=== PATIENT | female | born 1955 | race Caucasian/White ===

== ENCOUNTER 2018-09-15 10:01 | Emergency (ER) | payer BC, OTHER ==
[~2018-09-15] VITALS: Ht 157.5 cm; Wt 90.7 kg
[~2018-09-15 10:01] MED LIST: FLUT250M9 IN; TIOTCAP IN
[2018-09-15 11:03] VITALS: BP 115/73
[2018-09-15] MEDS ORDERED: KETOROLAC TROMETH 60MG/2ML VIAL IM ONE (11:45)
[2018-09-15] MEDS ORDERED: METHOCARBAMOL 500 MG TAB PO ONE (11:45)
[2018-09-15] MEDS ORDERED: KETOROLAC TROMETH 15 mg/ml 1ML VL IV ONE (12:00)
== END 2018-09-15 12:29 | disposition home or self-care (01) ==
LOC: EDBD 10:01 → ER 10:04
DX: S13.4XXA Sprain of ligaments of cervical spine, initial encounter (principal); M25.519 Pain in unspecified shoulder; J44.9 Chronic obstructive pulmonary disease, unspecified; E78.5 Hyperlipidemia, unspecified; I10 Essential (primary) hypertension; F17.210 Nicotine dependence, cigarettes, uncomplicated; V43.92XA Unspecified car occupant injured in collision with other type car in traffic accident, initial encounter; Y93.89 Activity, other specified; Y92.488 Other paved roadways as the place of occurrence of the external cause; Y99.8 Other external cause status
CPT/HCPCS: 71045; 72125; 96374; 99284; J1885

== ENCOUNTER 2022-07-07 19:10 | Inpatient (IN) | payer OTHER ==
[~2022-07-07] VITALS: Ht 157.5 cm; Wt 60.1 kg
[2022-07-07] MEDS ORDERED: SODIUM CHLORIDE 0.9% 1,000 ML IV ONE (19:30)
[2022-07-07] MEDS ORDERED: PANTOPRAZOLE 40 MG/10 ML VIAL INJ IV ONE (19:30)
[2022-07-07] MEDS ORDERED: ONDANSETRON HCL 4 MG/2 ML VIAL IV ONE (19:30)
[2022-07-07 20:10] LABS: Basophils # (auto) 0.2 10 ^3/uL (0-0.2); Basophils % (auto) 1.5 % (0.0-2.0); Eosinophils # (auto) 0 10 ^3/uL (0-0.8); Hematocrit 40.4 % (36.0-46.0); Hemoglobin 13.3 g/dL (12.2-16.2); Lymphocytes # (auto) 1.1 10 ^3/uL (0.4-5.4); Lymphocytes % (auto) 9.9 % (10.0-50.0); Mean Corpuscular Hemoglobin 29.6 pg (28.0-32.0); Mean Corpuscular Hgb Conc. 32.9 g/dL (32.0-36.0); Monocytes # (auto) 0.5 10 ^3/uL (0-1.3); Monocytes % (auto) 4.2 % (0.0-12.0); Neutrophils # (auto) 9.5 10 ^3/uL (1.6-8.6); Neutrophils % (auto) 84.4 % (37.0-80.0); Red Blood Cells 4.49 10^6/uL (4.0-5.20); Red Cell Distribution Width 14.2 % (11.8-14.3); White Blood Cell 11.2 10^3/uL (4.4-10.8)
[2022-07-07 20:18] LABS: Albumin 3.6 g/dL (3.4-5.0); BUN/Creatinine Ratio 21.1 (10.0-20.0); Calcium 9.1 mg/dL (8.5-10.1); Potassium 3.7 mmol/L (3.5-5.1)
[2022-07-07 20:21] LABS: Bilirubin, Total 0.1 mg/dL (0.2-1.0); Total Protein 7.4 g/dL (6.4-8.2)
[2022-07-07] MEDS ORDERED: PANTOPRAZOLE 40mg/50ML NS AE 50 ML IV ONE (20:30)
[2022-07-07] MEDS ORDERED: IOHEXOL 350 MG/ML 100ML IJ ONE (20:45)
[2022-07-07] MEDS: PANTOPRAZOLE 40mg/50ML NS AE 50 ML IV SCH (21:45)
[2022-07-07] MEDS ORDERED: MORPHINE SULFATE INJ 2 MG/ml SYRG IV PRN (21:45)
[2022-07-07] MEDS: SODIUM CHLORIDE 0.9% 1,000 ML IV SCH (21:45)
[2022-07-07] MEDS ORDERED: ONDANSETRON HCL 4 MG/2 ML VIAL IV PRN (21:45)
[2022-07-07 21:53] LABS: INR 0.93 (0.9-1.15)
[2022-07-07 23:28] LABS: Urine Bacteria NONE SEEN /hpf (None Seen); Urine Blood Negative /uL (Negative); Urine WBC 1 /hpf (0 - 5)
[2022-07-08 00:50] LABS: Basophils # (auto) 0 10 ^3/uL (0-0.2); Basophils % (auto) 0.4 % (0.0-2.0); Eosinophils # (auto) 0 10 ^3/uL (0-0.8); Eosinophils % (auto) 0.3 % (0.0-7.0); Hematocrit 39.3 % (36.0-46.0); Hemoglobin 12.5 g/dL (12.2-16.2); Lymphocytes # (auto) 1.4 10 ^3/uL (0.4-5.4); Lymphocytes % (auto) 11.9 % (10.0-50.0); Mean Corpuscular Hemoglobin 29.5 pg (28.0-32.0); Mean Corpuscular Volume 92.4 fL (80.0-100.0); Monocytes # (auto) 0.7 10 ^3/uL (0-1.3); Monocytes % (auto) 6.2 % (0.0-12.0); Neutrophils # (auto) 9.2 10 ^3/uL (1.6-8.6); Neutrophils % (auto) 81.2 % (37.0-80.0); Red Blood Cells 4.25 10^6/uL (4.0-5.20); Red Cell Distribution Width 14.8 % (11.8-14.3); White Blood Cell 11.4 10^3/uL (4.4-10.8)
[2022-07-08] MEDS: PANTOPRAZOLE 40mg/50ML NS AE 50 ML IV SCH ×4 (02:51→20:47)
[2022-07-08] MEDS ORDERED: LORazepam 2MG/ML-1ML VIAL IV ONE (06:00)
[2022-07-08 06:01] LABS: Basophils # (auto) 0 10 ^3/uL (0-0.2); Basophils % (auto) 0.3 % (0.0-2.0); Eosinophils # (auto) 0.1 10 ^3/uL (0-0.8); Eosinophils % (auto) 1.2 % (0.0-7.0); Hematocrit 36.2 % (36.0-46.0); Hemoglobin 11.5 g/dL (12.2-16.2); Lymphocytes # (auto) 1.6 10 ^3/uL (0.4-5.4); Lymphocytes % (auto) 14.8 % (10.0-50.0); Mean Corpuscular Hemoglobin 29.7 pg (28.0-32.0); Mean Corpuscular Hgb Conc. 31.8 g/dL (32.0-36.0); Mean Corpuscular Volume 93.4 fL (80.0-100.0); Monocytes # (auto) 0.8 10 ^3/uL (0-1.3); Monocytes % (auto) 7.3 % (0.0-12.0); Neutrophils # (auto) 8.4 10 ^3/uL (1.6-8.6); Neutrophils % (auto) 76.4 % (37.0-80.0); Nucleated Red Blood Cells % 0.1 %; Red Blood Cells 3.88 10^6/uL (4.0-5.20); Red Cell Distribution Width 14.3 % (11.8-14.3)
[2022-07-08 06:25] LABS: BUN/Creatinine Ratio 37.5 (10.0-20.0); Calcium 8.6 mg/dL (8.5-10.1); Potassium 3.8 mmol/L (3.5-5.1)
[2022-07-08] MEDS ORDERED: fentaNYL CITRATE 100 MCG/2 ML VL ONE (08:57)
[2022-07-08] MEDS ORDERED: MIDAZOLAM HCL 2MG/2ML 2ml VIAL (1mg/ml) ONE (08:58)
[2022-07-08] MEDS ORDERED: PROPOFOL 10 MG/ML 20 ML IV ONE (09:18)
[2022-07-08] MEDS ORDERED: LIDOCAINE 2% (LOCAL ANESTH.) PF 5ml SDV ONE (09:18)
[2022-07-08] MEDS ORDERED: ONDANSETRON HCL 4 MG/2 ML VIAL IV ONE (09:30)
[2022-07-08] MEDS: LISINOPRIL 20 MG TAB PO SCH ×3 (13:50→15:24)
[2022-07-08] MEDS ORDERED: LISINOPRIL 20 MG TAB PO ONE (13:50)
[2022-07-08 15:24] VITALS: BP 167/76
[2022-07-08] MEDS ORDERED: SIMV-13 PO (15:53)
[2022-07-08] MEDS ORDERED: LORA1TAB23 PO (15:53)
[2022-07-08] MEDS ORDERED: BUSP7.5T8 PO (15:53)
[2022-07-08] MEDS ORDERED: ESCI-28 PO (15:53)
[2022-07-08] MEDS ORDERED: LISI40TA11 PO (15:53)
[2022-07-08] MEDS: hydrALAZINE HCL 20 MG/ML VL IV PRN (15:55)
[2022-07-08 17:00] VITALS: BP 170/78
[2022-07-08 17:00] LABS: Basophils # (auto) 0.2 10 ^3/uL (0-0.2); Basophils % (auto) 1.3 % (0.0-2.0); Eosinophils # (auto) 0.1 10 ^3/uL (0-0.8); Eosinophils % (auto) 0.7 % (0.0-7.0); Hematocrit 37.9 % (36.0-46.0); Hemoglobin 11.9 g/dL (12.2-16.2); Lymphocytes # (auto) 1.6 10 ^3/uL (0.4-5.4); Lymphocytes % (auto) 11.1 % (10.0-50.0); Mean Corpuscular Hemoglobin 29.1 pg (28.0-32.0); Mean Corpuscular Hgb Conc. 31.3 g/dL (32.0-36.0); Mean Corpuscular Volume 92.9 fL (80.0-100.0); Monocytes # (auto) 0.8 10 ^3/uL (0-1.3); Monocytes % (auto) 5.4 % (0.0-12.0); Neutrophils # (auto) 11.4 10 ^3/uL (1.6-8.6); Neutrophils % (auto) 81.5 % (37.0-80.0); Nucleated Red Blood Cells % 0.1 %; Red Blood Cells 4.08 10^6/uL (4.0-5.20); Red Cell Distribution Width 14.4 % (11.8-14.3)
[2022-07-08] MEDS: ACETAMINOPHEN 325 MG TAB PO PRN ×2 (17:00→21:22)
[2022-07-08] MEDS: SUCRALFATE 1 GM/10 ML ORAL SUSP PO SCH ×2 (17:00→21:07)
[2022-07-08] MEDS ORDERED: POLYETHYLENE GLYCOL 17 GM PWDR PO PRN (17:15)
[2022-07-08] MEDS: SODIUM CHLORIDE 0.9% 1,000 ML IV SCH ×2 (17:45→18:39)
[2022-07-08] MEDS: DOCUSATE SOD 100 MG CAP PO SCH (21:07)
[2022-07-08 22:00] VITALS: BP 114/74
[2022-07-08] MEDS ORDERED: MELATONIN 5 MG TAB PO PRN (22:00)
[2022-07-09] MEDS: PANTOPRAZOLE 40mg/50ML NS AE 50 ML IV SCH (02:03)
[2022-07-09] MEDS: SODIUM CHLORIDE 0.9% 1,000 ML IV SCH (02:03)
[2022-07-09 05:32] VITALS: BP 133/75
[2022-07-09] MEDS: SUCRALFATE 1 GM/10 ML ORAL SUSP PO SCH ×2 (06:12→10:59)
[2022-07-09 06:15] LABS: Basophils # (auto) 0.2 10 ^3/uL (0-0.2); Basophils % (auto) 1.5 % (0.0-2.0); Eosinophils # (auto) 0.4 10 ^3/uL (0-0.8); Eosinophils % (auto) 3.6 % (0.0-7.0); Lymphocytes # (auto) 1.4 10 ^3/uL (0.4-5.4); Lymphocytes % (auto) 13.5 % (10.0-50.0); Mean Corpuscular Hemoglobin 30.8 pg (28.0-32.0); Mean Corpuscular Hgb Conc. 33.4 g/dL (32.0-36.0); Mean Corpuscular Volume 92.3 fL (80.0-100.0); Monocytes # (auto) 0.5 10 ^3/uL (0-1.3); Monocytes % (auto) 5.2 % (0.0-12.0); Neutrophils # (auto) 7.8 10 ^3/uL (1.6-8.6); Neutrophils % (auto) 76.2 % (37.0-80.0); Nucleated Red Blood Cells % 0.2 %; Red Blood Cells 3.57 10^6/uL (4.0-5.20); White Blood Cell 10.2 10^3/uL (4.4-10.8)
[2022-07-09 06:35] LABS: BUN/Creatinine Ratio 29.1 (10.0-20.0)
[2022-07-09] MEDS: ACETAMINOPHEN 325 MG TAB PO PRN (08:31)
[2022-07-09] MEDS: hydrALAZINE HCL 20 MG/ML VL IV PRN (09:13)
[2022-07-09 09:18] VITALS: BP 176/76
[2022-07-09] MEDS: DOCUSATE SOD 100 MG CAP PO SCH ×2 (10:00→10:59)
[2022-07-09] MEDS ORDERED: SUCR1SUS10 PO (13:02)
[2022-07-09] MEDS ORDERED: PANT40TA2 PO (13:02)
[2022-07-09 13:07] VITALS: BP 169/67
== END 2022-07-09 12:30 | disposition left against medical advice (07) | DRG 393 ==
LOC: EDBD 19:10 → ER 19:10 → TELE 23:23 → TELE-EAST 07-08 14:56
PROVIDERS: ADMIT Nurse Practitioner Family; ATTEND Nurse Practitioner Family
PROC: 0DB98ZX Excision of Duodenum, Via Natural or Artificial Opening Endoscopic, Diagnostic (ICD-10-PCS; 2022-07-08)
PROC: 0DB78ZX Excision of Stomach, Pylorus, Via Natural or Artificial Opening Endoscopic, Diagnostic (ICD-10-PCS; 2022-07-08)
PROC: 0DB38ZX Excision of Lower Esophagus, Via Natural or Artificial Opening Endoscopic, Diagnostic (ICD-10-PCS; principal; 2022-07-08 08:55)
DX: T18.128A Food in esophagus causing other injury, initial encounter (principal); K22.11 Ulcer of esophagus with bleeding; K25.4 Chronic or unspecified gastric ulcer with hemorrhage; K29.91 Gastroduodenitis, unspecified, with bleeding; K29.71 Gastritis, unspecified, with bleeding; K22.2 Esophageal obstruction; E78.00 Pure hypercholesterolemia, unspecified; I10 Essential (primary) hypertension; K44.9 Diaphragmatic hernia without obstruction or gangrene; J44.9 Chronic obstructive pulmonary disease, unspecified; Z53.29 Procedure and treatment not carried out because of patient's decision for other reasons; F17.210 Nicotine dependence, cigarettes, uncomplicated; Z20.822 Contact with and (suspected) exposure to COVID-19; Z90.13 Acquired absence of bilateral breasts and nipples; Z79.899 Other long term (current) drug therapy; Z80.1 Family history of malignant neoplasm of trachea, bronchus and lung; Z80.42 Family history of malignant neoplasm of prostate; Z92.3 Personal history of irradiation; Z85.3 Personal history of malignant neoplasm of breast
CPT/HCPCS: 36415; 43239; 71045; 71260; 74177; 76536; 80048; 80053; 81001; 82105; 82378; 82962; 83690; 85025; 85610; 85730; 86300; 86301; 86304; 86850; 86900; 86901; 87426; 93005; 96361; 96365; 96375; 96376; C9113; G0378; J2001; J2250; J2405; J2704

== ENCOUNTER 2024-02-29 18:33 | Inpatient (IN) | payer OTHER, MEDICAID ==
[~2024-02-29] VITALS: Ht 160 cm; Wt 63.6 kg
[~2024-02-29 18:33] MED LIST changes: +BUSP7.5T8 PO; +ESCI1TAB36 PO; +LISI40TA16 PO; +LORA-1123 PO; +PANT40TA2 PO; +SIMV40TA18 PO; +SUCR1SUS26 PO
--- NOTE | 2024-02-29 18:50 | ED.PDOC ---
History of Present Illness HPI Comments 68-year-old female brought in by EMS from home for evaluation of a possible medication overdose. Patient's daughter reportedly found the patient in her room talking to her . Patient's daughter became concerned and found that the patient had recently refilled her Ativan prescription 5 days ago. The refill was for 30 pills, and 17 pills were noted to be missing. Patient's prescription is for 1 Ativan tablet at bedtime as needed. On arrival to the ER, the patient is alert, oriented x4, and denies any SI/HI, auditory or visual hallucinations. She denies any recent illness or current pain. Chief Complaint: Overdose Time Seen by MD: 18:45 Primary Care Provider: YASIR Reviewed Notes: Nurses Notes, Cyber Defense Analyst Notes, Medications, Allergies Allergies: Coded Allergies: NO KNOWN ALLERGIES (Unverified , 09/15/18) Home Meds Active Scripts Sucralfate (CARAFATE SUSP) 1 Gm/10 Ml Ss, 1 GM PO Q6HR, #1200 ML Prov:MILLY CUMMINS MD 07/09/22 Pantoprazole Sodium Sesquihydr (Protonix) 40 Mg Tab, 40 MG PO BID, #60 TAB Prov:MILLY CUMMINS MD 07/09/22 Reported Medications Buspirone Hcl (Buspirone Hcl) 7.5 Mg Tab, 1 TAB PO BID 07/08/22 Escitalopram Oxalate (ESCITALOPRAM OXALATE) 10 Mg Tab, 1 TAB PO DAILY 07/08/22 Simvastatin (Simvastatin) 40 Mg Tab, 1 TAB PO DAILY 07/08/22 Lorazepam (Lorazepam) 1 Mg Tab, 1 TAB PO BIDPRN PRN for anxiety 07/08/22 Lisinopril (Lisinopril) 40 Mg Tab, 1 TAB PO DAILY 07/08/22 Tiotropium [place] Monohydrate (Spiriva Handihaler) Handihlr Cap, 0 IN, CAP 03/06/13 Fluticasone-Salmeterol (Advair Diskus) 250/50 Mis, 0 IN 03/06/13 Information Source: Patient, Emergency Med Personnel Mode of Arrival: EMS Severity: Moderate Timing: Minutes Duration: Since onset, Minutes Prehospital treatment: None Past Medical History PAST MEDICAL HISTORY: Cancer (Breast Cancer), COPD, High Lipids, HTN Past Medical History (Other): Currently on 3L of O2 NC at home Surgical History: (x2) Surgical History (Other): Double Mastectomy FINANCIAL AID ADVISOR History: Denies all FINANCIAL AID ADVISOR Hx Family History Family History: Reviewed,noncontributory to illness, Unknown Social History Smoker: Unknown Alcohol: Unknown Drugs: Unknown Lives In: Home Constitutional: denies: chills, diaphoresis, fatigue, fever, malaise, sweats, weakness, others EENTM: denies: blurred vision, double vision, ear bleeding, ear discharge, ear drainage, ear pain, ear ringing, eye pain, eye redness, hearing loss, mouth pain, mouth swelling, nasal discharge, nose bleeding, nose congestion, nose pain, photophobia, tearing, throat pain, throat swelling, voice changes, others Respiratory: denies: cough, hemoptysis, orthopnea, SOB at rest, shortness of breath, SOB with excertion, stridor, wheezing, others Cardiovascular: denies: chest pain, dizzy spells, diaphoresis, Dyspnea on exertion, edema, irregular heart beat, left arm pain, lightheadedness, palpitations, PND, syncope, others Gastrointestinal: denies: abdomen distended, abdominal pain, blood streaked bowels, constipated, diarrhea, dysphagia, difficulty swallowing, hematemesis, melena, nausea, poor appetite, poor fluid intake, rectal bleeding, rectal pain, vomiting, others Genitourinary: denies: abnormal vagina bleeding, burning, dyspareunia, dysuria, flank pain, frequency, hematuria, incontinence, pain, , vagina discharge, urgency, others Neurological: denies: dizziness, fainting, headache, left sided numbness, left sided weakness, numbness, paresthesia, pre-existing deficit, right sided numbness, right sided weakness, seizure, speech problems, tingling, tremors, weakness, others Musculoskeletal: denies: back pain, gout, joint pain, joint swelling, muscle pain, muscle stiffness, neck pain, others Integumetry: denies: bruises, change in color, change in hair/nails, dryness, laceration, lesions, lumps, rash, wounds, others Allergic/Immunocompromised: denies: Difficulty Healing, Frequent Infections, Hives, Itching, others Hematologic/Lymphatic: denies: anemia, blood clots, easy bleeding, easy bruising, swollen glands, others Endocrine: denies: excessive hunger, excessive sweating, excessive thirst, excessive urination, flushing, intolerance to cold, intolerance to heat, unexplained weight gain, unexplained weight loss, others Psychiatric: reports: others (Overdose); denies: anxiety, bipolar disorder, depression, hopeless, panic disorder, schizophrenia, sleepless, suicidal Physical Exam General Appearance: No Apparent Distress HEENT: Normal ENT Inspection Neck: Full Range of Motion, Normal Inspection Respiratory: Lungs Clear, No Accessory Muscle Use, No Respiratory Distress, Normal Breath Sounds Cardiovascular: No Edema, No JVD, Regular Rate/Rhythm Breast Exam: Deferred Gastrointestinal: Non Tender, Soft Genitalia: Deferred Pelvic: Deferred Rectal: Deferred Extremities: Normal inspection, Normal range of motion, Non-tender, No pedal edema Neurologic: Alert (Oriented x4), No Motor Deficits, Normal Affect, Normal Mood, No Sensory Deficits Cerebellar Function: NOT DONE Reflexes: NOT DONE Skin: Dry, Normal Color, Warm Lymphatic: NOT DONE Was a procedure done? Was a procedure done?: No EKG EKG : Comments Sinus rhythm with sinus arrhythmia, rate 94, normal intervals, normal axis, possible old anteroseptal infarct, nonspecific T changes. Differential Dx Considerations may include: Benzodiazepine overdose, dementia, psychosis, CVA, TIA, alcohol/drug intoxication, among others X-Ray, Labs, Meds, VS Vital Signs Date Time Temp Pulse Resp B/P (MAP) Pulse Ox O2 Delivery O2 Flow Rate FiO2 02/29/24 18:59 94 02/29/24 18:34 98.2 98 18 142/74 (96) 98 Lab Test 02/29/24 21:03 02/29/24 19:37 Range/Units Ammonia 21 11-32 umol/L Troponin I High Sensitivity 5 5 </=34 ng/L White Blood Count 4.6 4.4-10.8 10^3/uL Red Blood Count 4.74 4.0-5.20 10^6/uL Hemoglobin 13.4 12.2-16.2 g/dL Hematocrit 41.6 36.0-46.0 % Mean Corpuscular Volume 87.8 80.0-100.0 fL Mean Corpuscular Hemoglobin 28.3 28.0-32.0 pg Mean Corpuscular Hemoglobin Concent 32.2 32.0-36.0 g/dL Red Cell Distribution Width 15.8 H 11.8-14.3 % Platelet Count 222 140-450 10^3/uL Mean Platelet Volume 8.4 6.9-10.8 fL Neutrophils (%) (Auto) 69.3 37.0-80.0 % Lymphocytes (%) (Auto) 20.3 10.0-50.0 % Monocytes (%) (Auto) 8.6 0.0-12.0 % Eosinophils (%) (Auto) 1.3 0.0-7.0 % Basophils (%) (Auto) 0.5 0.0-2.0 % Neutrophils # (Auto) 3.2 1.6-8.6 10 ^3/uL Lymphocytes # (Auto) 0.9 0.4-5.4 10 ^3/uL Monocytes # (Auto) 0.4 0-1.3 10 ^3/uL Eosinophils # (Auto) 0.1 0-0.8 10 ^3/uL Basophils # (Auto) 0 0-0.2 10 ^3/uL Nucleated Red Blood Cells 0.1 % Sodium Level 139 136-145 mmol/L Potassium Level 3.4 L 3.5-5.1 mmol/L Chloride Level 107 98-107 mmol/L Carbon Dioxide Level 22 20-31 mmol/L Anion Gap 10 5-15 Blood Urea Nitrogen 24 H 9-23 mg/dL Creatinine 1.19 H 0.550-1.02 mg/dL Glomerular Filtration Rate Calc 50 >90 mL/min BUN/Creatinine Ratio 20.2 H 10.0-20.0 Serum Glucose 152 H 74-106 mg/dL Calcium Level 9.2 8.7-10.4 mg/dL Total Bilirubin < 0.2 L 0.2-1.0 mg/dL Aspartate Amino Transferase (AST) 31 13-40 U/L Alanine Aminotransferase (ALT) 24 7-40 U/L Alkaline Phosphatase 95 46-116 U/L Total Protein 6.3 5.7-8.2 g/dL Albumin 3.7 3.2-4.8 g/dL Salicylates Level < 3.0 -30 mg/dL Acetaminophen Level < 2.0 L 10.0-20.0 UG/ML Plasma/Serum Blood Alcohol < 3.0 <10 mg/dL Current Medications Medications (Trade) Dose Ordered Sig/Fabian Route Start Time Stop Time Status Last Admin Sodium Chloride 1,000 ml @ 1,000 mls/hr Q1H ONCE IV 02/29/24 19:00 02/29/24 19:59 DC 02/29/24 20:13 Ondansetron HCl (Zofran) 4 mg ONCE ONCE IV 02/29/24 21:15 02/29/24 21:16 DC 02/29/24 21:14 PROCEDURE(s): HWOCT - HEAD WITHOUT CONTRAST REASON: al ORDER NUMBER(s): [id number], ACCESSION NUMBER(s): [id number] CT HEAD WITHOUT CONTRAST INDICATION: aloc COMPARISON: CT CHEST WITH CONTRAST on DOS: 07/07/22, CERVICAL WITHOUT CONTRAST on DOS: 09/15/18 TECHNIQUE: CT of the head without intravenous contrast. RADIATION DOSE: CTDIvol: 53.24 mGy, DLP: 942.86 mGy*cm FINDINGS: There is no evidence of acute intracranial hemorrhage, extra-axial collection, mass effect, midline shift, herniation or hydrocephalus. The ventricles, sulci and cisterns are age appropriate. The jewell-white differentiation is intact. The visualized paranasal sinuses and mastoid air cells are clear. The surrounding soft tissues and osseous structures are unremarkable. IMPRESSION: 1. No evidence of acute intracranial hemorrhage, mass effect or hydrocephalus. EDURE(s): CXR1 - CHEST XRAY 1 VIEW REASON: al ORDER NUMBER(s): [id number], ACCESSION NUMBER(s): [id number] CHEST RADIOGRAPH Indication: aloc Technique: Single frontal view of the chest was obtained Comparison: XY CHEST PORTABLE on DOS: 07/07/22, CHEST PORTABLE on DOS: 09/15/18 FINDINGS: Lines and Tubes: None Lungs: No focal consolidation. Pleura: No effusion. No pneumothorax. Cardiomediastinal contours: Unremarkable Bones: No acute osseous abnormality. IMPRESSION: No acute cardiopulmonary disease. Image rotation to the left. X-Ray, Labs, Meds, VS Comment 68-year-old female with a history of hypertension, COPD on home O2, brought in by EMS with altered mental status witnessed at home by daughter, possibly associated with an overdose of Ativan. Vitals remarkable for BP 142/74 Exam unremarkable EKG sinus rhythm with sinus arrhythmia, nonspecific T changes Chest x-ray unremarkable Head CT unremarkable CBC unremarkable, basic metabolic panel remarkable for potassium 3.4, BUN 24, creatinine 1.19, glucose 152 Troponin, alcohol, Tylenol and salicylate negative Urine drug screen pending Patient treated with the following in the ED: 1 L 0.9 normal saline IV bolus. Patient is subsequently developed nausea and vomiting, so received Zofran 4 mg IV KCl 40 mEq p.o. was also ordered. On re-evaluation, patient was resting comfortably with stable vitals. Plan is to admit/transfer the patient for ongoing observation and possibe neurology evaluation We were able to obtain authorization from [facility] to admit the patient here under observation. Authorization [id number]. Time of 1ST Reevaluation: 19:15 Reevaluation 1ST: Unchanged Time of 2ND Reevaluation: 21:41 Reevaluation 2ND: Unchanged Patient Education/Counseling: Diagnosis, Treatment, Prognosis Family Education/Counseling: No Family Present Additional Information - I reviewed the following notes from patient's past medical encounters:07/07/22 - The following tests were ordered, and results were reviewed by me: Labs, X- Ray, CT, PHA - Additional information was gathered from interviewing the following independent Historian: EMT and family through what the EMT heard the daughter state of the pt - I reviewed and agreed with the following test results read by other provider: X-ray, CT - I discussed treatments and results with medical personnel and: (consultants, family) Departure 1 Departure Time of Disposition: 21:41 Impression: Primary Impression: Altered mental status Qualified Codes: R41.82 - Altered mental status, unspecified Additional Impression: Benzodiazepine overdose Qualified Codes: T42.4X1A - Poisoning by benzodiazepines, accidental (unintentional), initial encounter Disposition: ADMITTED INPATIENT Admit to: Tele Condition: Guarded Critical Care Note Critical Care Time?: No Stability Stability form required: No Heart Score Heart Score: Heart Score Response (Comments) Value History N/A 0 EKG N/A 0 Age N/A 0 Risk Factors N/A 0 Troponin N/A 0 Total 0 I personally scribed for JOANNA HERNANDEZ MD ([facility]) on 02/29/24 at 18:50. Electronically submitted by Braxton Brady ([email or web address]). JOANNA HERNANDEZ MD Feb 29, 2024 18:50
--- NOTE | 2024-02-29 19:07 | ECG ---
[facility] Test Date: 2024-02-29 Test Time: 18:59:29 Pat Name: SCOTT ANN Department: ER Room: Gender: F Psychotherapist Social Worker: LUIGI : 1955 Requested By: JOANNA CARVER Order Number: [id number] Reading MD: Measurements Intervals [place] Rate: 94 P: 0 UT: 0 QRS: 76 QRSD: 92 T: -38 QT: 321 QTc: 402 Interpretive Statements Atrial flutter with predominant 3:1 AV block Anteroseptal infarct, old Borderline repolarization abnormality Please click the below link to view image of tracing.
[2024-02-29 19:53] LABS: Basophils # (auto) 0 10 ^3/uL (0-0.2); Basophils % (auto) 0.5 % (0.0-2.0); Eosinophils # (auto) 0.1 10 ^3/uL (0-0.8); Eosinophils % (auto) 1.3 % (0.0-7.0); Hematocrit 41.6 % (36.0-46.0); Hemoglobin 13.4 g/dL (12.2-16.2); Lymphocytes # (auto) 0.9 10 ^3/uL (0.4-5.4); Lymphocytes % (auto) 20.3 % (10.0-50.0); Mean Corpuscular Hemoglobin 28.3 pg (28.0-32.0); Mean Corpuscular Hgb Conc. 32.2 g/dL (32.0-36.0); Mean Corpuscular Volume 87.8 fL (80.0-100.0); Monocytes # (auto) 0.4 10 ^3/uL (0-1.3); Monocytes % (auto) 8.6 % (0.0-12.0); Neutrophils # (auto) 3.2 10 ^3/uL (1.6-8.6); Neutrophils % (auto) 69.3 % (37.0-80.0); Nucleated Red Blood Cells % 0.1 %; Platelet Count (auto) 222 10^3/uL (140-450); Red Blood Cells 4.74 10^6/uL (4.0-5.20); Red Cell Distribution Width 15.8 % (11.8-14.3); White Blood Cell 4.6 10^3/uL (4.4-10.8)
--- NOTE | 2024-02-29 19:59 | DVH ---
CHEST RADIOGRAPH Indication: aloc Technique: Single frontal view of the chest was obtained Comparison: XY CHEST PORTABLE on DOS: 07/07/22, CHEST PORTABLE on DOS: 09/15/18 FINDINGS: Lines and Tubes: None Lungs: No focal consolidation. Pleura: No effusion. No pneumothorax. Cardiomediastinal contours: Unremarkable Bones: No acute osseous abnormality. IMPRESSION: No acute cardiopulmonary disease. Image rotation to the left.
[2024-02-29 20:00] VITALS: PULSE 96; RESP 22; O2SAT 93
--- NOTE | 2024-02-29 20:08 | DVH ---
CT HEAD WITHOUT CONTRAST INDICATION: aloc COMPARISON: CT CHEST WITH CONTRAST on DOS: 07/07/22, CERVICAL WITHOUT CONTRAST on DOS: 09/15/18 TECHNIQUE: CT of the head without intravenous contrast. RADIATION DOSE: CTDIvol: 53.24 mGy, DLP: 942.86 mGy*cm FINDINGS: There is no evidence of acute intracranial hemorrhage, extra-axial collection, mass effect, midline s hift, herniation or hydrocephalus. The ventricles, sulci and cisterns are age appropriate. The jewell -white differentiation is intact. The visualized paranasal sinuses and mastoid air cells are clear. The surrounding soft tissues and osseous structures are unremarkable. IMPRESSION: 1. No evidence of acute intracranial hemorrhage, mass effect or hydrocephalus.
[2024-02-29 20:12] LABS: Alanine Aminotransferase 24 U/L (7-40); Albumin 3.7 g/dL (3.2-4.8); Alkaline Phosphatase 95 U/L (46-116); Anion Gap 10 (5-15); Aspartate Aminotransferase 31 U/L (13-40); BUN/Creatinine Ratio 20.2 (10.0-20.0); Calcium 9.2 mg/dL (8.7-10.4); Carbon Dioxide 22 mmol/L (20-31); Sodium 139 mmol/L (136-145); Total Protein 6.3 g/dL (5.7-8.2)
[2024-02-29] MEDS: SODIUM CHLORIDE 0.9% 1,000 ML IV ONE (20:13)
[2024-02-29 20:14] LABS: Acetaminophen < 2.0 UG/ML (10.0-20.0)
[2024-02-29 20:15] LABS: Bilirubin, Total < 0.2 mg/dL (0.2-1.0); Blood Alcohol < 3.0 mg/dL (<10); Blood Urea Nitrogen 24 mg/dL (9-23); Chloride 107 mmol/L (98-107); Glucose 152 mg/dL (74-106); Potassium 3.4 mmol/L (3.5-5.1)
[2024-02-29 20:19] LABS: Salicylate < 3.0 mg/dL (-30)
[2024-02-29] MEDS: ONDANSETRON HCL 4 MG/2 ML VIAL IV ONE (21:14)
[2024-02-29] MEDS ORDERED: ONDANSETRON HCL 4 MG/2 ML VIAL IV PRN (23:30)
[2024-02-29] MEDS: POTASSIUM CHL 20 Meq TABLET PO ONE (23:38)
[2024-02-29 23:49] LABS: Amphetamine Screen, Urine Neg (NEGATIVE); Benzodiazephine Screen, Urine Neg (NEGATIVE); Cannabinoid Screen, Urine Pos (NEGATIVE); Opiate Scree,Urine Neg (NEGATIVE)
[2024-03-01 00:02] LABS: Barbiturate Scree,Urine Neg (NEGATIVE); Cocaine Screen, Urine Neg (NEGATIVE); Phencyclidine Screen, Urine Neg (NEGATIVE)
[2024-03-01 00:05] LABS: Urine Amorphous Crystal FEW /hpf (None Seen); Urine Bacteria MANY /hpf (None Seen); Urine Blood 3+ /uL (Negative); Urine Clarity Ex.Turbid (Clear); Urine Color Light-Orange (Yellow); Urine Mucus FEW (None Seen); Urine Protein, UAD TRACE (Negative); Urine Specific Gravity 1.013 (1.001-1.035); Urine Urobilinogen Normal (Negative); Urine WBC 40 /hpf (0 - 5)
--- NOTE | 2024-03-01 05:30 | DVHHP2 ---
History of Present Illness Reason for Visit: Altered mental status History of Present Illness 68-year-old female presents for evaluation of altered mental status. Patient was found to be progressively more confused yesterday. It was reported by family patient having her Ativan refilled four days ago. They stated there was 17 pills missing from the bottle. Patient is currently oriented x3.. She had becoming progressively more restless in the emergency department. Poison control was contacted and recommendations have been implemented. Past Medical History COPD, hypertension, dyslipidemia and cancer Past Surgical History , mastectomy Family History Noncontributory Smoke: No ALCOHOL: none Drugs: Marijuana Review of Systems Review of Systems Review of systems are currently negative otherwise addressed in HPI. Allergies: Coded Allergies: NO KNOWN ALLERGIES (Unverified , 09/15/18) Medications Current Medications Medications Dose Ordered Sig/Fabian Route Start Time Stop Time Status Last Admin Dose Admin Lisinopril 40 mg DAILY PO 03/01/24 10:00 Atorvastatin Calcium 40 mg HS PO 03/01/24 22:00 Ondansetron HCl 4 mg Q4HP PRN IV 02/29/24 23:30 Exam Vital Signs Vital Signs Date Time Temp Pulse Resp B/P (MAP) Pulse Ox O2 Delivery O2 Flow Rate FiO2 03/01/24 02:00 85 20 172/85 (114) 90 02/29/24 20:00 Room Air* 0 21 02/29/24 20:00 97.2 97.2 Exam Gen: 68-year-old female in mild distress Skin: Warm, dry, normal color and texture, no rash. HEENT: Normocephalic atraumatic, mucous membranes moist and pink. Neck: Cervical and supraclavicular nodes normal without enlargement, trachea is midline, thyroid gland is normal without masses. Pulmonary: Clear to auscultation and percussion bilaterally. Cardiac: Regular rate and rhythm. No murmur Abdomen: Soft, nontender, nondistended, bowel sounds present all 4 quadrants, no guarding, no rigidity, no organomegaly. Extremities: No cyanosis, clubbing, no edema Neuro: Cranial nerves II through XII grossly intact, normal affect and speech, no focal motor deficits. Labs/Xrays ORDERING PHYSICIAN: JOANNA HERNANDEZ MD PROCEDURE(s): CXR1 - CHEST XRAY 1 VIEW REASON: al ORDER NUMBER(s): [id number], ACCESSION NUMBER(s): [id number] CHEST RADIOGRAPH Indication: aloc Technique: Single frontal view of the chest was obtained Comparison: XY CHEST PORTABLE on DOS: 07/07/22, CHEST PORTABLE on DOS: 09/15/18 FINDINGS: Lines and Tubes: None Lungs: No focal consolidation. Pleura: No effusion. No pneumothorax. Cardiomediastinal contours: Unremarkable Bones: No acute osseous abnormality. IMPRESSION: No acute cardiopulmonary disease. Image rotation to the left. RING PHYSICIAN: JOANNA HERNANDEZ MD PROCEDURE(s): HWOCT - HEAD WITHOUT CONTRAST REASON: aloc ORDER NUMBER(s): [id number], ACCESSION NUMBER(s): [id number] CT HEAD WITHOUT CONTRAST INDICATION: aloc COMPARISON: CT CHEST WITH CONTRAST on DOS: 07/07/22, CERVICAL WITHOUT CONTRAST on DOS: 09/15/18 TECHNIQUE: CT of the head without intravenous contrast. RADIATION DOSE: CTDIvol: 53.24 mGy, DLP: 942.86 mGy*cm FINDINGS: There is no evidence of acute intracranial hemorrhage, extra-axial collection, mass effect, midline shift, herniation or hydrocephalus. The ventricles, sulci and cisterns are age appropriate. The jewell-white differentiation is intact. The visualized paranasal sinuses and mastoid air cells are clear. The surrounding soft tissues and osseous structures are unremarkable. IMPRESSION: 1. No evidence of acute intracranial hemorrhage, mass effect or hydrocephalus. Labs Test 02/29/24 23:13 02/29/24 21:03 02/29/24 19:37 Range/Units Urine Color Light-orange Yellow Urine Clarity Ex.turbid Clear Urine pH 6.0 5.0-9.0 Urine Specific [place] 1.013 1.001-1.035 Urine Protein Trace H Negative Urine Ketones Negative Negative Urine Blood 3+ H Negative /uL Urine Nitrite Negative Negative Urine Bilirubin Negative Negative Urine Urobilinogen Normal Negative mg/dL Urine Leukocyte Esterase 3+ Negative /uL Urine RBC 24 0 - 4 /hpf Urine WBC 40 0 - 5 /hpf Urine Squamous Epithelial Cells Few <5 /hpf Urine Amorphous Crystals Few None Seen /hpf Urine Bacteria Many H None Seen /hpf Urine Mucus Few None Seen Urine Glucose Normal Normal mg/dL Urine Opiates Screen Neg NEGATIVE Urine Fentanyl Screen Neg NEGATIVE Urine Barbiturates Screen Neg NEGATIVE Urine Phencyclidine Screen Neg NEGATIVE Urine Amphetamines Screen Neg NEGATIVE Urine Benzodiazepines Screen Neg NEGATIVE Urine Cocaine Screen Neg NEGATIVE Urine Cannabinoids Screen Pos NEGATIVE Ammonia 21 11-32 umol/L Troponin I High Sensitivity 5 </=34 ng/L White Blood Count 4.6 4.4-10.8 10^3/uL Red Blood Count 4.74 4.0-5.20 10^6/uL Hemoglobin 13.4 12.2-16.2 g/dL Hematocrit 41.6 36.0-46.0 % Mean Corpuscular Volume 87.8 80.0-100.0 fL Mean Corpuscular Hemoglobin 28.3 28.0-32.0 pg Mean Corpuscular Hemoglobin Concent 32.2 32.0-36.0 g/dL Red Cell Distribution Width 15.8 H 11.8-14.3 % Platelet Count 222 140-450 10^3/uL Mean Platelet Volume 8.4 6.9-10.8 fL Neutrophils (%) (Auto) 69.3 37.0-80.0 % Lymphocytes (%) (Auto) 20.3 10.0-50.0 % Monocytes (%) (Auto) 8.6 0.0-12.0 % Eosinophils (%) (Auto) 1.3 0.0-7.0 % Basophils (%) (Auto) 0.5 0.0-2.0 % Neutrophils # (Auto) 3.2 1.6-8.6 10 ^3/uL Lymphocytes # (Auto) 0.9 0.4-5.4 10 ^3/uL Monocytes # (Auto) 0.4 0-1.3 10 ^3/uL Eosinophils # (Auto) 0.1 0-0.8 10 ^3/uL Basophils # (Auto) 0 0-0.2 10 ^3/uL Nucleated Red Blood Cells 0.1 % Sodium Level 139 136-145 mmol/L Potassium Level 3.4 L 3.5-5.1 mmol/L Chloride Level 107 98-107 mmol/L Carbon Dioxide Level 22 20-31 mmol/L Anion Gap 10 5-15 Blood Urea Nitrogen 24 H 9-23 mg/dL Creatinine 1.19 H 0.550-1.02 mg/dL Glomerular Filtration Rate Calc 50 >90 mL/min BUN/Creatinine Ratio 20.2 H 10.0-20.0 Serum Glucose 152 H 74-106 mg/dL Calcium Level 9.2 8.7-10.4 mg/dL Total Bilirubin < 0.2 L 0.2-1.0 mg/dL Aspartate Amino Transferase (AST) 31 13-40 U/L Alanine Aminotransferase (ALT) 24 7-40 U/L Alkaline Phosphatase 95 46-116 U/L Total Protein 6.3 5.7-8.2 g/dL Albumin 3.7 3.2-4.8 g/dL Salicylates Level < 3.0 -30 mg/dL Acetaminophen Level < 2.0 L 10.0-20.0 UG/ML Plasma/Serum Blood Alcohol < 3.0 <10 mg/dL Assessment/Plan Assessment/Plan Assessment Acute encephalopathy Toxic versus metabolic encephalopathy Possible medication overdose Hypertension Electrolyte imbalance Plan Admit the patient to [facility] surge to the hospitalist Follow poison control recommendations Replete electrolytes Resume home medications Continue treatment per orders. Plan discussed with: Patient My Orders Orders - ANJELICA NUNEZ Procedure Category Date Status Time Admit ADMIT 02/29/24 Transmitted 23:07 Regular Diet DIET 03/01/24 Transmitted Breakfast Lisinopril Tablet PHA 03/01/24 In Process (Zestril Tablet) 10:00 Atorvastatin (Lipitor) PHA 03/01/24 In Process 22:00 Basic Metabolic Panel LAB 03/01/24 Logged 04:00 Ondansetron Hcl PHA 02/29/24 In Process (Zofran) 23:30 Condition: Stable KEYONA 02/29/24 In Process 23:17 Bedrest With Bathroom KEYONA 02/29/24 In Process Privileg 23:17 Clostridium Difficile JIMMY 03/01/24 In Process Toxin 04:14 Ceftriaxone Ivpb PHA 03/01/24 Verified Rocephin 09:00 Urine Bacterial JIMMY 03/01/24 Uncollected Culture 05:25 Date of Service: Feb 29, 2024 Billing Provider: ANJELICA NUNEZ Common Visit Codes: [id number] INP/OBS CARE (HIGH) ANJELICA NUNEZ Mar 01, 2024 05:30
[2024-03-01 06:57] LABS: Anion Gap 7 (5-15); Calcium 9.3 mg/dL (8.7-10.4); Carbon Dioxide 24 mmol/L (20-31); Sodium 141 mmol/L (136-145)
[2024-03-01 07:03] LABS: BUN/Creatinine Ratio 17.2 (10.0-20.0); Blood Urea Nitrogen 17 mg/dL (9-23)
[2024-03-01 07:06] LABS: Chloride 110 mmol/L (98-107); Glucose 113 mg/dL (74-106)
[2024-03-01 07:30] VITALS: PULSE 96; RESP 18; TEMP 97.4; O2SAT 96
[2024-03-01] MEDS ORDERED: hydrALAZINE HCL 20 MG/ML VL IV PRN (09:00)
[2024-03-01 09:37] LABS: INR 1.06 (0.9-1.15); Partial Thromboplastin Time 29.9 SEC (24.5-34.5); Prothrombin Time 11.2 sec (9.3-11.8)
[2024-03-01 10:00] VITALS: BP 149/68; PULSE 78; RESP 16; O2SAT 95
[2024-03-01] MEDS: cefTRIAXone 1GM/50ML D5W 50 ML IV SCH (10:01)
[2024-03-01] MEDS: LISINOPRIL 20 MG TAB PO SCH (10:01)
[2024-03-01] MEDS: PANTOPRAZOLE 40 MG TAB PO SCH (10:21)
[2024-03-01] MEDS ORDERED: SUCRALFATE 1 GM/10 ML ORAL SUSP PO SCH (12:00)
[2024-03-01] MEDS ORDERED: CEPH250C PO (13:45)
--- NOTE | 2024-03-01 13:45 | DVHDSRES ---
Discharge Summary Date of Admission Resident Creating Document: EDGAR GUERRERO RESIDENT Feb 29, 2024 at 23:08 Date of Discharge: Mar 01, 2024 Admitting Diagnosis ALOC Labs/Diagnostic Data: Laboratory Results Test 03/01/24 06:05 02/29/24 23:13 02/29/24 21:03 02/29/24 19:37 Prothrombin Time 11.2 sec (9.3-11.8) Prothrombin Time INR 1.06 (0.9-1.15) Activated Partial Thromboplast Time 29.9 SEC (24.5-34.5) Sodium Level 141 mmol/L (136-145) Potassium Level 4.0 mmol/L (3.5-5.1) Chloride Level 110 mmol/L (98-107) Carbon Dioxide Level 24 mmol/L (20-31) Anion Gap 7 (5-15) Blood Urea Nitrogen 17 mg/dL (9-23) Creatinine 0.99 mg/dL (0.550-1.02) Glomerular Filtration Rate Calc 63 mL/min (>90) BUN/Creatinine Ratio 17.2 (10.0-20.0) Serum Glucose 113 mg/dL (74-106) Hemoglobin A1c 6.2 % A1C (<5.7) Calcium Level 9.3 mg/dL (8.7-10.4) Magnesium Level 2.1 mg/dL (1.6-2.6) Thyroid Stimulating Hormone (TSH) 0.34 uIU/mL (0.55-4.78) Urine Color Light-orange (Yellow) Urine Clarity Ex.turbid (Clear) Urine pH 6.0 (5.0-9.0) Urine Specific Bude 1.013 (1.001-1.035) Urine Protein Trace (Negative) Urine Ketones Negative (Negative) Urine Blood 3+ /uL (Negative) Urine Nitrite Negative (Negative) Urine Bilirubin Negative (Negative) Urine Urobilinogen Normal mg/dL (Negative) Urine Leukocyte Esterase 3+ /uL (Negative) Urine RBC 24 /hpf (0 - 4) Urine WBC 40 /hpf (0 - 5) Urine Squamous Epithelial Cells Few /hpf (<5) Urine Amorphous Crystals Few /hpf (None Seen) Urine Bacteria Many /hpf (None Seen) Urine Mucus Few (None Seen) Urine Glucose Normal mg/dL (Normal) Urine Opiates Screen Neg (NEGATIVE) Urine Fentanyl Screen Neg (NEGATIVE) Urine Barbiturates Screen Neg (NEGATIVE) Urine Phencyclidine Screen Neg (NEGATIVE) Urine Amphetamines Screen Neg (NEGATIVE) Urine Benzodiazepines Screen Neg (NEGATIVE) Urine Cocaine Screen Neg (NEGATIVE) Urine Cannabinoids Screen Pos (NEGATIVE) Ammonia 21 umol/L (11-32) Troponin I High Sensitivity 5 ng/L (</=34) White Blood Count 4.6 10^3/uL (4.4-10.8) Red Blood Count 4.74 10^6/uL (4.0-5.20) Hemoglobin 13.4 g/dL (12.2-16.2) Hematocrit 41.6 % (36.0-46.0) Mean Corpuscular Volume 87.8 fL (80.0-100.0) Mean Corpuscular Hemoglobin 28.3 pg (28.0-32.0) Mean Corpuscular Hemoglobin Concent 32.2 g/dL (32.0-36.0) Red Cell Distribution Width 15.8 % (11.8-14.3) Platelet Count 222 10^3/uL (140-450) Mean Platelet Volume 8.4 fL (6.9-10.8) Neutrophils (%) (Auto) 69.3 % (37.0-80.0) Lymphocytes (%) (Auto) 20.3 % (10.0-50.0) Monocytes (%) (Auto) 8.6 % (0.0-12.0) Eosinophils (%) (Auto) 1.3 % (0.0-7.0) Basophils (%) (Auto) 0.5 % (0.0-2.0) Neutrophils # (Auto) 3.2 10 ^3/uL (1.6-8.6) Lymphocytes # (Auto) 0.9 10 ^3/uL (0.4-5.4) Monocytes # (Auto) 0.4 10 ^3/uL (0-1.3) Eosinophils # (Auto) 0.1 10 ^3/uL (0-0.8) Basophils # (Auto) 0 10 ^3/uL (0-0.2) Nucleated Red Blood Cells 0.1 % Total Bilirubin < 0.2 mg/dL (0.2-1.0) Aspartate Amino Transferase (AST) 31 U/L (13-40) Alanine Aminotransferase (ALT) 24 U/L (7-40) Alkaline Phosphatase 95 U/L (46-116) Total Protein 6.3 g/dL (5.7-8.2) Albumin 3.7 g/dL (3.2-4.8) Salicylates Level < 3.0 mg/dL (-30) Acetaminophen Level < 2.0 UG/ML (10.0-20.0) Plasma/Serum Blood Alcohol < 3.0 mg/dL (<10) Other Laboratory Tests 03/01/24 06:05 02/29/24 19:37 Brief Hx & Hospital Course: Yesenia Hope is a 68-year-old female with a PMH of COPD, HTN, dyslipidemia, breast cancer status post resection presented to the ED with the chief complaints of altered level of consciousness yesterday. Per patient family, they found 17 Ativan pills missing, they thought patient has taken them, Brought her to ED. Today patient is alert and oriented x4, reported she has not take those medications, Denies fever, nausea, vomiting, abdominal pain, and other acute associated symptoms Patient required hospital admission for further evaluation and management of Altered level of consciousness. head CT showed no acute changes, UDS was negative for benzodiazepines but positive for cannabinoids. Urinalysis was positive for acute complicated UTI, patient was given Rocephin and sent urinary cultures. Patient condition was improved, hemodynamically stable and in condition to be discharged home with optimal medical treatment. Patient was counseled regarding chlamydia cessation for more than 17 minutes. Patient was advised about healthy lifestyle habits including diet and exercise, to quit marijuana and to follow up with PCP. Pt is lying on bed General Appearance: Alert, Oriented X3, Cooperative, Not in acute distress HEENT: Atraumatic, Mucous membranes moist/pink Respiratory: Clear to auscultation, Normal air movement, No added sounds Cardiovascular: Regular rate, Normal S1, Normal S2, No murmurs Abdominal: Active bowel sounds, Soft, no distention, no tenderness Extremities: No edema, Normal pulses, No tenderness/swelling Skin: No Significant rash, except past surgical scars Neuro: Normal speech, sensorimotor deficits none Psych/Mental Status: Mental status NL, Mood NL Nurse was there as sharperone during examination Operations or Procedures CHEST RADIOGRAPH IMPRESSION: No acute cardiopulmonary disease. Image rotation to the left. CT HEAD WITHOUT CONTRAST IMPRESSION: 1. No evidence of acute intracranial hemorrhage, mass effect or hydrocephalus. Condition at Discharge: Stable Final Diagnosis/Problems List # Acute toxic or metabolic encephalopathy likely secondary to UTI versus cannabinoid # acute complicated UTI # cannabinoid abuse disorder # mild hypokalemia resolved # hypertension # COPD not in exacerbation # ruled out medication overdose( benzodiazepine overdose) Discharge Disposition: Home Discharge Instruct/Medications Diet: Consistent carbohydrate, Cardiac 2g Na,low cholest Activity: No Restrictions, As Tolerated Follow Up/Referral: PCP Medications: Per EMR Discharge Statement: "Patient was advised to return to the ER or call 911 if any headaches, dizziness, shortness of breath, chest pain, abdominal pain, bleeding, fevers, or worsening of medical condition. Patient was counseled about treatment plan, medications, possible side effects, patientverbalized understanding. All questions were answered to the best of my ability. This discharge took greater then 30 minutes in planning, reviewing documentation, counseling the patient, and discussing with other team members." ASSESSMENT ASSESSMENT Assessment Acute toxic- metabolic encephalopathy Acute complicated UTI EDGAR GUERRERO RESIDENT Mar 01, 2024 13:45
[2024-03-01] MEDS ORDERED: AMLO1TAB22 PO (17:44)
[2024-03-01] MEDS ORDERED: amLODIPine BESYLATE 5 MG TAB PO ONE (17:45)
[2024-03-01] MEDS ORDERED: ATORVASTATIN 20 MG TAB PO SCH (22:00)
[2024-03-02] MEDS ORDERED: amLODIPine BESYLATE 5 MG TAB PO SCH (10:00)
== END 2024-03-01 23:08 | disposition home or self-care (01) | DRG 917 ==
LOC: EDBD 18:33 → ER 18:33 → OVERFLOW 23:08
PROVIDERS: ADMIT Internal Medicine Geriatric Medicine; ATTEND Internal Medicine Geriatric Medicine
DX: T40.721A Poisoning by synthetic cannabinoids, accidental (unintentional), initial encounter (principal); G92.8 Other toxic encephalopathy; N39.0 Urinary tract infection, site not specified; I10 Essential (primary) hypertension; J44.9 Chronic obstructive pulmonary disease, unspecified; E78.5 Hyperlipidemia, unspecified; E87.6 Hypokalemia; Z79.899 Other long term (current) drug therapy; Z90.13 Acquired absence of bilateral breasts and nipples; Z85.3 Personal history of malignant neoplasm of breast; Y92.89 Other specified places as the place of occurrence of the external cause
CPT/HCPCS: 36415; 70450; 71045; 80048; 80053; 80307; 80320; 80329; 81001; 82140; 82306; 82607; 83036; 83735; 84443; 84484; 85025; 85610; 85730; 87493; 93005; 96361; 96374; G0378; J2405